=== PATIENT | female | born 1960 | race African-American/Black ===

== ENCOUNTER 2023-04-16 17:45 | Emergency (ER) | payer OTHER, MEDICAID ==
[~2023-04-16] VITALS: Ht 167.6 cm; Wt 59.0 kg
[~2023-04-16 17:45] MED LIST: LEVO-481 PO
[2023-04-16 17:54] VITALS: BP 122/70; PULSE 89; RESP 18; TEMP 98; O2SAT 98
[2023-04-16 18:32] VITALS: O2SAT 98
[2023-04-16 18:36] VITALS: BP 121/68; PULSE 88; RESP 18; TEMP 98; O2SAT 98
[2023-04-16] MEDS ORDERED: MORPHINE SULFATE 4 MG/ML SYR IM ONE (18:55)
[2023-04-16] MEDS ORDERED: ACET-10509 PO (20:39)
== END 2023-04-16 20:59 | disposition home or self-care (01) ==
LOC: MED 17:45
DX: S70.01XA Contusion of right hip, initial encounter (principal); W18.30XA Fall on same level, unspecified, initial encounter; Y93.89 Activity, other specified; Y92.89 Other specified places as the place of occurrence of the external cause; Y99.8 Other external cause status
CPT/HCPCS: 72170; 96372; 99283; J2270; Q0092

== ENCOUNTER 2023-05-16 18:47 | Emergency (ER) | payer OTHER, MEDICAID ==
[~2023-05-16] VITALS: Ht 167.6 cm; Wt 77.1 kg
[2023-05-16 18:47] VITALS: BP 159/106; PULSE 84; RESP 18; TEMP 97.7; O2SAT 98
[~2023-05-16 18:47] MED LIST changes: +ACET-10509 PO
[2023-05-16] MEDS ORDERED: MORPHINE SULFATE 4 MG/ML SYR IM ONE (19:00)
[2023-05-16 19:32] VITALS: BP 149/90; PULSE 81; RESP 14; TEMP 97.8; O2SAT 97
== END 2023-05-16 19:32 | disposition home or self-care (01) ==
LOC: MED 18:47
DX: M25.551 Pain in right hip (principal); F41.9 Anxiety disorder, unspecified; Z79.899 Other long term (current) drug therapy
CPT/HCPCS: 96372; 99283; J2270